=== PATIENT | male | born 1950 | race Caucasian/White ===

== ENCOUNTER → 2016-09-08 | Outpatient (CLI) | payer BC ==
--- NOTE | 2016-09-08 08:00 | US ---
EXAMINATION TYPE: US abdomen complete DATE OF EXAM: 09/08/2016 COMPARISON: NONE CLINICAL HISTORY: R74.8 Elevated Liver Enzymes. EXAM MEASUREMENTS: Liver Length: 15.4 cm Gallbladder Wall: 0.3 cm CBD: 0.4 cm Spleen: 13.1 cm Right Kidney: 12.2 x 4.7 x 5.1 cm Left Kidney: 12.1 x 5.9 x 5.8 cm Pancreas: not visualized due to midline bowel gas and body habitus Liver: difficult to penetrate, echogenic as compared to kidney Gallbladder: No stones seen Evidence for sonographic Womack's sign: No CBD: wnl Spleen: wnl Right Kidney: No hydronephrosis or masses seen Left Kidney: cyst laterally measures 2.1 x 2.2 x 2.6 cm Upper IVC: wnl Abd Aorta: upper portion not seen due to midline bowel gas and body habitus The pancreas is obscured. The liver is normal in size but echogenic and likely fatty infiltrated. The gallbladder is normal without evidence of cholelithiasis. The gallbladder wall measures 3 mm. The distal common hepatic duct measures 4 mm. The right kidney is normal. There is a simple appearing cyst arising from the lower pole of the left kidney. Visualized portions of aorta and IVC are normal. IMPRESSION: 1. PROBABLE FATTY INFILTRATION OF THE LIVER. 2. SIMPLE APPEARING LEFT RENAL CYST.
== END | disposition home or self-care (01) ==
LOC: RADUSWWP 06:47
PROVIDERS: ATTEND Family Medicine
DX: N28.1 Cyst of kidney, acquired (principal)
CPT/HCPCS: 76700

== ENCOUNTER → 2017-03-18 | Outpatient (CLI) | payer BC ==
--- NOTE | 2017-03-18 11:29 | CT ---
EXAMINATION TYPE: CT abdomen pelvis wo con DATE OF EXAM: 03/18/2017 HISTORY: Abd mass per order, mid abd tenderness per patient. CT DLP: 660.3 mGycm. Automated Exposure Control for Dose Reduction was Utilized. TECHNIQUE: CT scan of the abdomen and pelvis is performed without oral or IV contrast. COMPARISON: Complete abdominal ultrasound September 08, 2016 FINDINGS: Within the limitations of a non-contrast study, the following observations are made. LUNG BASES: Mild cardiomegaly is present. LIVER/GB: Visualized liver is heterogeneously hypodense consistent with fatty infiltration or underly ing hepatocellular disease. Recanalized umbilical vein is noted anteriorly. Slight lobulation is pres ent. PANCREAS: No significant abnormality is seen. SPLEEN: Spleen remains mildly enlarged at 13.1 cm long axis axial image 24. This correlates with prio r ultrasound. ADRENALS: No significant abnormality is seen. KIDNEYS: There is simple appearing 2.1 cm cyst posteriorly lower pole level left kidney axial image 4 2. Finding correlates with prior ultrasound. BOWEL: There is moderate size hiatal hernia containing small mesenteric vessels. A few scattered colo rosalba diverticula are present. There is no convincing evidence for acute diverticulitis. No suspicious small or large bowel dilatation. Normal-appearing appendix seen from cecum in the right lower quadran t. GENITAL ORGANS: No gross abnormality seen. LYMPH NODES: No greater than 1cm abdominal or pelvic lymph nodes are appreciated. OSSEOUS STRUCTURES: There is moderate multilevel spurring in the thoracolumbar spine. There is modera te to severe disc space narrowing and spurring L5-S1 level with prominent posterior spur and facet ar thropathy at this level. There is additional facet arthropathy with posterior disc herniation L4-L5 l evel. Moderate spurring and disc space narrowing bilateral hip joints is present. OTHER: Few scattered pelvic phleboliths are present. There is mild to moderate calcified plaque in th e distal abdominal aorta extending to iliac branch vessels with slight ectasia noted. There is small umbilical hernia containing fat and recanalized umbilical vein. IMPRESSION: 1. Persistent abnormal appearance of liver could reflect diffuse fatty infiltration but underlying he patocellular disease needs to BE considered or excluded as there is recanalized umbilical vein and mi ld splenomegaly noted. No ascites is seen or noted currently. 2. Moderate size umbilical hernia containing small abdominal mesenteric vessels and mesenteric fat. 3. No additional worrisome mass or adenopathy identified. Results communicated to ordering physician office via telephone at time of dictation.
== END | disposition home or self-care (01) ==
LOC: RADCTMAIN 10:45
PROVIDERS: ATTEND Nurse Practitioner Adult Health
DX: K42.9 Umbilical hernia without obstruction or gangrene (principal); R16.1 Splenomegaly, not elsewhere classified; R19.00 Intra-abdominal and pelvic swelling, mass and lump, unspecified site
CPT/HCPCS: 74176

== ENCOUNTER → 2018-01-02 | Outpatient (CLI) | payer BC ==
[2018-01-02 11:45] LABS: Basophils % (A) 2 %; Eosinophils # (A) 0.1 k/uL (0-0.7); Eosinophils % (A) 3 %; HCT 38.4 % (39.0-53.0); HGB 12.7 gm/dL (13.0-17.5); Lymphocytes # (A) 0.8 k/uL (1.0-4.8); Lymphocytes % (A) 31 %; MCH 32.2 pg (25.0-35.0); MCHC 33.1 g/dL (31.0-37.0); MCV 97.2 fL (80.0-100.0); Mean Platelet Volume 7.5; Monocytes # (A) 0.2 k/uL (0-1.0); Monocytes % (A) 8 %; Neutrophils # (A) 1.5 k/uL (1.3-7.7); Neutrophils % (A) 55 %; Platelet Count 130 k/uL (150-450); RBC 3.95 m/uL (4.30-5.90); RDW 14.1 % (11.5-15.5); WBC 2.7 k/uL (3.8-10.6)
[2018-01-02 12:19] LABS: Appearance,Urine Clear (Clear); Bilirubin,Urine Negative (Negative); Blood,Urine Negative (Negative); Color,Urine Yellow; Glucose,Urine (UA) Negative (Negative); Ketones,Urine Negative (Negative); Leukocyte Esterase,Urine Negative (Negative); Nitrite,Urine Negative (Negative); PH, Urine 6.5 (5.0-8.0); Protein,Urine Negative (Negative); Specific Gravity,Urine 1.017 (1.001-1.035)
[2018-01-02 14:40] LABS: Erythrocyte Sedimentation Rate 11 mm/hr (0-15)
[2018-01-02 17:12] LABS: Vitamin D 25 Hydroxy 37.3 ng/mL (30.0-100.0)
[2018-01-02 18:46] LABS: ALT 28 U/L (10-49); AST 45 U/L (14-35); Alkaline Phosphatase 69 U/L (41-126); C Reactive Protein <0.4 mg/dL (0.0-0.8); Carbon Dioxide 31.7 mmol/L (21.6-31.8); Chloride 109 mmol/L (96-109); Cholesterol 182 mg/dL (0-200); GGT 165 U/L (0-73); Globulin 2.1 g/dL (2.1-3.7); Glucose 102 mg/dL (70-110); Hepatitis A Antibody IgM Non-Reactive (Non-Reactive); Hepatitis B Core IgM Non-Reactive (Non-Reactive); Magnesium 1.7 mg/dL (1.5-2.4); Phosphorus 3.8 mg/dL (2.4-5.1); Sodium 146 mmol/L (135-145); Total Bilirubin 0.8 mg/dL (0.3-1.2); Total Protein 6.5 g/dL (6.2-8.2); Triglycerides <50.0 mg/dL (0.0-149.0); VLDL Calculation 9.98 mg/dL (5.00-40.00)
[2018-01-02 19:56] LABS: Hemoglobin A1C 5.6 % (4.0-6.0)
[2018-01-04 13:54] LABS: Creatine Kinase 164 U/L (35-257); Uric Acid 5.3 mg/dL (3.7-8.7)
== END | disposition home or self-care (01) ==
LOC: LABWHC1 10:56
PROVIDERS: ATTEND Internal Medicine
DX: E11.9 Type 2 diabetes mellitus without complications (principal); N40.0 Benign prostatic hyperplasia without lower urinary tract symptoms; E78.5 Hyperlipidemia, unspecified; D64.9 Anemia, unspecified; E55.9 Vitamin D deficiency, unspecified; F10.10 Alcohol abuse, uncomplicated
CPT/HCPCS: 36415; 80053; 80061; 80074; 81003; 82043; 82140; 82306; 82550; 82570; 82977; 83036; 83735; 84100; 84153; 84439; 84443; 84550; 85025; 85652; 86140

== ENCOUNTER 2018-01-05 17:35 | Emergency (ER) | payer BC, MEDICARE ==
[2018-01-05 17:59] VITALS: BP 143/76; PULSE 61; RESP 22; TEMP 98.6
--- NOTE | 2018-01-05 19:36 | XR ---
EXAMINATION: XR chest 2V DATE AND TIME: 01/05/2018 6:28 PM CLINICAL INDICATION: Pain after injury TECHNIQUE: PA and lateral COMPARISON: None. FINDINGS: The lungs are clear. The pleural spaces are negative. The cardiac silhouette is not enlarged. The remainder of the mediastinal silhouette is unremarkable. The skeletal structures and soft tissues are negative for acute findings. IMPRESSION: NO ACUTE PROCESS.
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
[2018-01-05] MEDS ORDERED: ACET/COD 300 MG/30 MG STARTER PACK 6 TAB BTL PO STA (19:52)
== END 2018-01-05 20:04 | disposition home or self-care (01) ==
LOC: EC 17:35
DX: S22.32XA Fracture of one rib, left side, initial encounter for closed fracture (principal); E11.9 Type 2 diabetes mellitus without complications; K21.9 Gastro-esophageal reflux disease without esophagitis; I10 Essential (primary) hypertension; F41.9 Anxiety disorder, unspecified; Z87.891 Personal history of nicotine dependence; Z79.82 Long term (current) use of aspirin; Z79.84 Long term (current) use of oral hypoglycemic drugs; Z79.899 Other long term (current) drug therapy; V19.9XXA Pedal cyclist (driver) (passenger) injured in unspecified traffic accident, initial encounter; Y93.55 Activity, bike riding
CPT/HCPCS: 71046; 99284

== ENCOUNTER → 2018-01-28 | Outpatient (CLI) | payer BC ==
[2018-01-29 04:16] LABS: T4, Free (Free Thyroxine) 1.2 ng/dL (0.80-1.80)
== END | disposition home or self-care (01) ==
LOC: LABMAIN 18:24
PROVIDERS: ATTEND Ophthalmology
DX: H05.20 Unspecified exophthalmos (principal)
CPT/HCPCS: 36415; 83519; 84439; 84443

== ENCOUNTER 2018-03-02 09:53 | Day surgery (SDC) | payer BC, MEDICARE ==
[~2018-03-02 09:53] MED LIST: LACTATED RINGERS 1,000 ML IV SCH; LIDOCAINE 1% 20 ML VIAL (10MG/ML) FOR IV START INTRADERMA PRN
[2018-03-02 10:31] LABS: Glucose,Whole Blood 91 mg/dL (75-99)
[2018-03-02 10:36] VITALS: RESP 16; TEMP 98.5
[2018-03-02] MEDS ORDERED: PROPOFOL 10 MG/ML 20 ML VIAL IV ONE (11:02)
[2018-03-02] MEDS ORDERED: LIDOCAINE 1% INJ 10MG/ML (20 ML MDV) ONE (11:02)
--- NOTE | 2018-03-02 11:26 | P.PCN ---
Date of Procedure: 03/02/18 Procedure(s) Performed: Procedure: Esophagogastroduodenoscopy and biopsy. Preoperative diagnosis: Blood in stools. Postoperative diagnosis: 1. Small sliding hiatal hernia with no obvious esophagitis or conjugated reflux disease. 2. Mild gastritis and moderate duodenitis but no ulcers or gastric outlet obstruction. 3. Biopsies obtained from the antrum and esophagus. Preparation sedation: Was provided by anesthesia. Brief clinical history: The patient is a 67-year-old male who is scheduled for this evaluation because of finding of occult blood in the stools. The patient had colonoscopy in December 2016. He has occasional difficulties with pills but no significant dysphagia. Has lost 30 pounds since he stopped drinking alcohol around 2 months ago. This evaluation is to assess for peptic ulcer disease, esophagitis or complicated reflux disease. Procedure: With the patient on his left lateral decubitus position and after informed consent and adequate sedation, I passed a Olympus-GIF 190 video upper endoscope through the cricopharyngeus down the esophagus. GE junction was around 40 cm from the incisors and there was a small sliding hiatal hernia but no obvious esophagitis or complicated reflux disease. The endoscope was then passed into the stomach which was insufflated with air and inspected in detail including the retroflex view in the cardia. There was some mottling and erythema in the antrum but no ulcers or erosions. Pyloric channel, duodenal bulb, post bulbar area and descending duodenum were the inspected. The bulb showed erythema and edema and scattered erosions but no ulcers or bleeding. Pyloric channel did not show any ulcers. I obtained biopsies from the antrum and esophagus then the endoscope was withdrawn. The patient tolerated the procedure well. Plan: The patient was reassured. Will await biopsy results. He is already on omeprazole which would be continued. Further plans based on his course and biopsy results.
[2018-03-02 11:38] VITALS: BP 154/83; PULSE 50
== END 2018-03-02 12:09 | disposition home or self-care (01) ==
LOC: ORWHC2ENDO 09:53
DX: K29.50 Unspecified chronic gastritis without bleeding (principal); K44.9 Diaphragmatic hernia without obstruction or gangrene; K29.80 Duodenitis without bleeding; R19.5 Other fecal abnormalities; K21.9 Gastro-esophageal reflux disease without esophagitis; I10 Essential (primary) hypertension; E11.9 Type 2 diabetes mellitus without complications; Z79.84 Long term (current) use of oral hypoglycemic drugs; Z79.82 Long term (current) use of aspirin; Z79.899 Other long term (current) drug therapy; Z87.891 Personal history of nicotine dependence
CPT/HCPCS: 88305; 43239; J2001; J2704

== ENCOUNTER → 2018-06-01 | Outpatient (CLI) | payer BC ==
[2018-06-01 23:45] LABS: C-Peptide 1.02 ng/mL (0.81-3.85)
[2018-06-02 01:04] LABS: Insulin Level 3.6 mIU/mL (3.0-25.0)
[2018-06-02 01:08] LABS: T4, Free (Free Thyroxine) 1.1 ng/dL (0.80-1.80)
[2018-06-02 02:33] LABS: Hemoglobin A1C 5.7 % (4.0-6.0)
[2018-06-02 15:02] LABS: Thyroid Peroxidase Antibodies <28.0 U/mL (0.0-60.0)
== END ==
LOC: LABWHC1 15:30
PROVIDERS: ATTEND Internal Medicine
DX: E11.9 Type 2 diabetes mellitus without complications (principal); E87.0 Hyperosmolality and hypernatremia; E05.90 Thyrotoxicosis, unspecified without thyrotoxic crisis or storm; E29.1 Testicular hypofunction
CPT/HCPCS: 36415; 82947; 83036; 83525; 84402; 84403; 84439; 84443; 84681; 86376; 86800

== ENCOUNTER → 2018-06-08 | Outpatient (CLI) | payer BC ==
--- NOTE | 2018-06-09 09:39 | XR ---
EXAMINATION TYPE: XR Hip RT and AP Pelvis DATE OF EXAM: 06/08/2018 COMPARISON: CT abdomen pelvis 03/18/2017 HISTORY: Pain TECHNIQUE: A single AP view of the pelvis is obtained. Two views of the right hip are obtained. FINDINGS: There is no acute fracture/dislocation evident in the pelvis. The hip and sacroiliac join ts appear symmetric and unremarkable. The overlying soft tissue appears unremarkable. Two views of right hip show no acute fracture or dislocation. No focal lytic or sclerotic lesion see n in the proximal right femur. The overlying soft tissue is unremarkable. Marginal spurring is pres ent with some joint space loss. Similar changes in the left hip. Calcification at the origin of the h amstring conjoined tendon origin may be due to chronic tear. Degenerative disc changes are present in the visualized spine. Suspect vascular calcifications are present in the pelvis. IMPRESSION: There is no acute fracture or dislocation in the pelvis or right hip. Osteoarthritis.
== END | disposition home or self-care (01) ==
LOC: RADXRMAIN 17:21
PROVIDERS: ATTEND Internal Medicine
DX: M16.11 Unilateral primary osteoarthritis, right hip (principal)
CPT/HCPCS: 73502

== ENCOUNTER → 2018-08-02 | Outpatient (CLI) | payer BC | END | disposition home or self-care (01) | LOC: RADMRIMAIN 16:08 | PROVIDERS: ATTEND Internal Medicine | DX: Z53.9 Procedure and treatment not carried out, unspecified reason (principal) ==

== ENCOUNTER 2019-01-10 08:49 | Emergency (ER) | payer BC, MEDICARE ==
[2019-01-10 08:56] VITALS: BP 156/78; PULSE 83; RESP 18; TEMP 98.9
[2019-01-10] MEDS ORDERED: HYDROcodone/APAP 5-325MG 1 EACH TAB PO STA (09:04)
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
--- NOTE | 2019-01-10 09:29 | XR ---
EXAMINATION TYPE: XR ankle complete LT, XR foot complete LT DATE OF EXAM: 01/10/2019 COMPARISON: NONE HISTORY: Pain TECHNIQUE: 3 views of the left foot and ankle are submitted for evaluation. FINDINGS: There is nondisplaced lateral malleolar fracture noted. There fractures noted at the bases of the second third and fourth metatarsals. Displacement estimated at 1 mm at each site. Small chip f ractures of felt to arise from the first cuneiform. No additional fractures noted. Soft tissue swelli ng noted about the lateral malleolus and midfoot. The ankle mortise is intact. IMPRESSION: 1. Fractures as discussed above.
[2019-01-10] MEDS ORDERED: ACET/COD 300 MG/30 MG STARTER PACK 6 TAB BTL PO STA (09:45)
== END 2019-01-10 10:16 | disposition home or self-care (01) ==
LOC: EC 08:49
DX: S82.65XA Nondisplaced fracture of lateral malleolus of left fibula, initial encounter for closed fracture (principal); S92.322A Displaced fracture of second metatarsal bone, left foot, initial encounter for closed fracture; S92.332A Displaced fracture of third metatarsal bone, left foot, initial encounter for closed fracture; S92.342A Displaced fracture of fourth metatarsal bone, left foot, initial encounter for closed fracture; E11.9 Type 2 diabetes mellitus without complications; K21.9 Gastro-esophageal reflux disease without esophagitis; I10 Essential (primary) hypertension; Z79.82 Long term (current) use of aspirin; Z79.84 Long term (current) use of oral hypoglycemic drugs; Z87.891 Personal history of nicotine dependence; Z79.899 Other long term (current) drug therapy; X50.1XXA Overexertion from prolonged static or awkward postures, initial encounter; Y93.01 Activity, walking, marching and hiking
CPT/HCPCS: 29515; 99283

== ENCOUNTER → 2019-01-12 | Outpatient (CLI) | payer BC, MEDICARE ==
--- NOTE | 2019-01-12 15:03 | CT ---
EXAMINATION TYPE: CT foot LT wo con DATE OF EXAM: 01/12/2019 COMPARISON: 01/10/2019 foot and ankle HISTORY: Left foot pain. CT DLP: 238.8 mGycm Automated exposure control for dose reduction was used. Technique: Axial images 2 mm thick sections. Reconstructed images in the coronal and sagittal plane. Three-D reconstructed images performed separa tely on the computer by the technologist are presented. FINDINGS: There is diffuse soft tissue swelling present. This includes the dorsum of the foot and mildly at the ankle. Ankle: There is a nondisplaced fracture of the distal fibula. This is comminuted. Also evident is a p osterior tibial fracture which is nondisplaced. No medial malleolar fracture is evident. Foot: Degenerative changes are at first metatarsal-phalangeal joint space. There is a fracture at the metaphysis of the second metatarsal. This has intra-articular extension. F ourth metatarsal nondisplaced fractures at the metaphysis. Third metatarsal fractures evident posteri patricia on the axial images. These suspected cuneiform chip fracture may be at the cuneiform metatarsal junction superiorly. No displacement of the metatarsals from the cuneiforms is identified. However, Lisfranc fracture shou ld be considered. IMPRESSION: 1. LISFRANC FRACTURE WITH FRACTURES OF THE PROXIMAL METAPHYSES OF THE SECOND THIRD AND FOURTH METATAR SALS. 2. COMMINUTED NONDISPLACED FRACTURE DISTAL FIBULA WITH A TINY POSTERIOR TIBIAL FRACTURE. 3. OVERLYING SOFT TISSUE SWELLING AT THE ANKLE AND FOOT
== END | disposition home or self-care (01) ==
LOC: RADCTMAIN 11:36
PROVIDERS: ATTEND Orthopaedic Surgery
DX: S92.322A Displaced fracture of second metatarsal bone, left foot, initial encounter for closed fracture (principal); S92.332A Displaced fracture of third metatarsal bone, left foot, initial encounter for closed fracture; S92.342A Displaced fracture of fourth metatarsal bone, left foot, initial encounter for closed fracture; S82.255A Nondisplaced comminuted fracture of shaft of left tibia, initial encounter for closed fracture; S82.832A Other fracture of upper and lower end of left fibula, initial encounter for closed fracture

== ENCOUNTER → 2019-02-24 | Outpatient (CLI) | payer BC ==
[2019-02-24 08:14] LABS: Basophils # (A) 0.1 k/uL (0-0.2); Basophils % (A) 1 %; Eosinophils # (A) 0.7 k/uL (0-0.7); Eosinophils % (A) 15 %; HGB 14.9 gm/dL (13.0-17.5); Lymphocytes # (A) 1.1 k/uL (1.0-4.8); Lymphocytes % (A) 22 %; MCH 30.9 pg (25.0-35.0); MCHC 33.1 g/dL (31.0-37.0); MCV 93.5 fL (80.0-100.0); Mean Platelet Volume 8.5; Monocytes # (A) 0.4 k/uL (0-1.0); Monocytes % (A) 9 %; Neutrophils # (A) 2.4 k/uL (1.3-7.7); Neutrophils % (A) 51 %; Platelet Count 137 k/uL (150-450); RBC 4.81 m/uL (4.30-5.90); RDW 14.2 % (11.5-15.5); WBC 4.8 k/uL (3.8-10.6)
[2019-02-24 11:32] LABS: Erythrocyte Sedimentation Rate 6 mm/hr (0-15)
[2019-02-24 13:12] LABS: ALT 26 U/L (10-49); AST 28 U/L (14-35); African American GFR (CKD) 102.1 (60.0-200.0); Alkaline Phosphatase 75 U/L (41-126); BUN/Creat Ratio 18.89 Ratio (12.00-20.00); C Reactive Protein <0.4 mg/dL (0.0-0.8); Calcium 9.1 mg/dL (8.7-10.3); Carbon Dioxide 30.2 mmol/L (21.6-31.8); Chloride 106 mmol/L (96-109); Chol/HDL Ratio 2.85; Cholesterol 185 mg/dL (0-200); Creatine Kinase 98 U/L (35-257); Glucose 131 mg/dL (70-110); LDL Cholesterol,Calculated 109.6 mg/dL (0.0-131.0); Non-African American GFR(CKD) 88.1 (60.0-200.0); Potassium 4.2 mmol/L (3.5-5.5); Sodium 142 mmol/L (135-145); Total Bilirubin 0.5 mg/dL (0.3-1.2); Total Protein 6.6 g/dL (6.2-8.2)
== END | disposition home or self-care (01) ==
LOC: LABWHC1 06:44
PROVIDERS: ATTEND Internal Medicine
DX: E78.5 Hyperlipidemia, unspecified (principal); N52.9 Male erectile dysfunction, unspecified; E55.9 Vitamin D deficiency, unspecified; R05 Cough
CPT/HCPCS: 36415; 80053; 80061; 82550; 84153; 84439; 84443; 85025; 85652; 86140

== ENCOUNTER → 2021-01-28 | Outpatient (CLI) | payer BC ==
--- NOTE | 2021-01-28 08:00 | US ---
EXAMINATION TYPE: US liver DATE OF EXAM: 01/28/2021 COMPARISON: NONE CLINICAL HISTORY: K70.30 Alcoholic cirrhosis of liver w/out ascites. No new history EXAM MEASUREMENTS: Liver Length: 15.0 cm Gallbladder Wall: 0.2 cm CBD: 0.3 cm Right Kidney: 10.1 x 6.2 x 5.4 cm Pancreas: Tail obscured by overlying bowel gas Liver: Increased attenuation, Coarse liver echotexture Gallbladder: wnl Evidence for sonographic Womack's sign: No CBD: wnl Right Kidney: No hydronephrosis or masses seen IMPRESSION: 1. Fatty infiltration liver.
[2021-01-28 08:45] LABS: Basophils # (A) 0.1 k/uL (0-0.2); Basophils % (A) 1 %; Eosinophils # (A) 0.1 k/uL (0-0.7); Eosinophils % (A) 1 %; HCT 45.4 % (39.0-53.0); HGB 14.9 gm/dL (13.0-17.5); Lymphocytes # (A) 1.2 k/uL (1.0-4.8); Lymphocytes % (A) 17 %; MCH 30.3 pg (25.0-35.0); MCHC 32.9 g/dL (31.0-37.0); MCV 91.9 fL (80.0-100.0); Mean Platelet Volume 7.6; Monocytes # (A) 0.4 k/uL (0-1.0); Monocytes % (A) 5 %; Neutrophils # (A) 5.3 k/uL (1.3-7.7); Neutrophils % (A) 75 %; Platelet Count 169 k/uL (150-450); RBC 4.93 m/uL (4.30-5.90); RDW 13.8 % (11.5-15.5); WBC 7.1 k/uL (3.8-10.6)
[2021-01-28 08:49] LABS: INR 1.1 (<1.2); Prothrombin Time 11.9 sec (9.0-12.0)
[2021-01-28 08:55] LABS: ALT 28 U/L (4-49); AST 31 U/L (17-59); African American GFR (CKD) >90 (>60 ml/min/1.73 sqM); Albumin 4.2 g/dL (3.5-5.0); Alkaline Phosphatase 57 U/L (38-126); Anion Gap 6 mmol/L; Bilirubin, Delta 0.2 mg/dL (0.0-0.2); Bilirubin,Unconjugated 0.4 mg/dL (0.0-1.1); Blood Urea Nitrogen 15 mg/dL (9-20); Calcium 9.2 mg/dL (8.4-10.2); Carbon Dioxide 30 mmol/L (22-30); Chloride 104 mmol/L (98-107); Glucose 108 mg/dL (74-99); Non-African American GFR(CKD) 88 (>60 ml/min/1.73 sqM); Potassium 4.2 mmol/L (3.5-5.1); Sodium 140 mmol/L (137-145); Total Bilirubin 0.6 mg/dL (0.2-1.3)
[2021-01-29 06:05] LABS: Chol/HDL Ratio 2.78 Ratio; LDL Cholesterol,Calculated 92.8 mg/dL (0.0-131.0); VLDL Calculation 10.32 mg/dL (5.00-40.00)
== END | disposition home or self-care (01) ==
LOC: RADUSWWP 07:15
PROVIDERS: ATTEND Internal Medicine Gastroenterology
DX: S62.509A Fracture of unspecified phalanx of unspecified thumb, initial encounter for closed fracture (principal); K76.0 Fatty (change of) liver, not elsewhere classified; K76.89 Other specified diseases of liver; E11.65 Type 2 diabetes mellitus with hyperglycemia; E78.5 Hyperlipidemia, unspecified; X58.XXXA Exposure to other specified factors, initial encounter
CPT/HCPCS: 76705; 80053; 80061; 82105; 82248; 83036; 85025; 85610

== ENCOUNTER → 2021-05-14 | Outpatient (CLI) | payer BC ==
--- NOTE | 2021-05-14 17:13 | P.SLEEP ---
History of Present Illness H&P Date: 05/14/21 70-year-old male patient, referred to me for sleep apnea evaluation. The patient is having sleep fragmentation when he is waking up several times in the middle of the night. He is not sure as far as the exact causes for his nighttime arousals. The patient is currently living alone and he does not have a bed partner. Is . He is a recovering alcoholic. His sleep was very much concerned when he was drinking alcohol excessively and has been alcohol free for the past 1-1/2 years. As the patient is currently free of alcohol, sleep quality has improved and he continued to have some occasional nocturnal arousals. He has history of snoring. He has history of banding of the teeth. He wakes up with a dry mouth. He continues to have some nocturia although less compared to the times when he used to drink alcohol. He goes to bed around 11 PM, wakes up 7 AM in the morning and is still working at a as an electrical manufacturing technician. No recent weight gain or weight loss. No sleepwalking or sleep talking. No sleep paralysis. No parasomnias. Current Prairie score is at 6. No obesity. No recent weight gain or weight loss. No history of any motor vehicle accident because of excessive drowsiness or sleepiness. No history of restlessness and lower extremities. He prefers to sleep on his side. He is a note that a mouth breather. He is an ex-smoker. No recent substance abuse. Review of Systems 12 point review of system was done and the positive findings are almost above history of present illness. The patient reports that he still functional. The has no issues waking up and he does not follow surgery day-to-day activities. No issues with memory or concentration. No history of any depression or anxiety. No claustrophobia. No palpitation or heartburn. No sleepwalking. No sleep talking. Denies choking or gasping for air in the middle of the night. No sweating. He used to have issues with insomnia when he was taken out but excessively and currently is free of any alcohol and the patient is able to generate sleep without any major difficulties. Past Medical History Past Medical History: Diabetes Mellitus, GERD/Reflux, Hypertension Additional Past Medical History / Comment(s): .alcoholism and the patient has not drank for the past one half years, still going to AA meetings History of Any Multi-Drug Resistant Organisms: None Reported Past Surgical History: Hernia Repair, Orthopedic Surgery, Tonsillectomy Additional Past Surgical History / Comment(s): HIATAL HERNIA (), TONSILLS AND R LEG FX REPAIR DONE WHEN HE WAS A CHILD. Past Anesthesia/Blood Transfusion Reactions: No Reported Reaction Past Psychological History: Anxiety Past Alcohol Use History: Occasional Past Drug Use History: None Reported - Past Family History Mother Family Medical History: Cancer Medications and Allergies Home Medications Medication Instructions Recorded Confirmed Type Aspirin [Adult Low Dose Aspirin EC] 162 mg PO DAILY 12/22/16 01/10/19 History Ascorbic Acid [Vitamin C] 500 mg PO DAILY 02/25/18 01/10/19 History Cholecalciferol [Vitamin D3] 1,000 units PO DAILY 02/25/18 01/10/19 History Cyanocobalamin (Vitamin B-12) 1,000 mcg PO DAILY 02/25/18 01/10/19 History [Vitamin B-12] [place]-3 Fatty Acids/Fish Oil [Fish 1 tab PO DAILY 02/25/18 01/10/19 History Oil 1,000 mg Softgel] Vitamin E (Dl,Tocopheryl Acet) 200 units PO DAILY 02/25/18 01/10/19 History [Vitamin E] Allergies Allergy/AdvReac Type Severity Reaction Status Date / Time No Known Allergies Allergy Verified 01/10/19 09:54 Physical Exam BP is 127/71 with a pulse of 67 and the respiration of 16 and a temperature 97.5 the patient's oxygen saturations around 95%. BMI 29.1. Weight is 186. Prairie score is at 6.the neck size is at 16 and3/4 of an inch. The patient appeared well nourished and normally developed. Vital signs as d ocumented. Head exam is unremarkable. No scleral icterus or corneal arcus noted. Neck is without jugular venous distension, thyromegaly, or carotid bruits. the patient has an overbite. The patient also has evidence of grinding of the teeth. He has Mallampati class IV.Carotid upstrokes are brisk bilaterally. Lungs are clear to auscultation and percussion. Cardiac exam reveals the PMI to be normally sized and situated. Rhythm is regular. First and second heart sounds normal. No murmurs, rubs or gallops. Abdominal exam reveals normal bowel sounds, no masses, no organomegaly and no aortic enlargement. Extremities are nonedematous and both femoral and pedal pulses are normal.Examination of the skin revealed no evidence of significant rashes, suspicious appearing nevi or other concerning lesions.Neurologically, the patient is awake and alert and the patient does not have any focal neurological deficit. Cranial nerves are essentially intact. Assessment and Plan Plan: 1 loud snoring along with sleep fragmentation, possible obstructive sleep apnea although other comorbid conditions such as history of alcoholism could do the same. The patient is a recovering alcoholic and he has been coughing for the past one and half years. He is coming in for a sleep apnea evaluation to further investigate the causes of his sleep fragmentation. His current Prairie scores at 6 2 overbite 3 grinding of the teeth 4 history of alcoholism 5 hypertension 6 acid reflux Plan The patient will undergo a screening polysomnogram looking for any significant sleep breathing disorder and will proceed with treatment accordingly. Obviously history of alcohol was includes cause sleep fragmentation and cause frequent nocturnal arousals. By performing a polysomnogram, or should be able to rule out possibility of other conditions such as sleep breathing disorder contributing to sleep fragmentation. We'll decide if treatment is needed accordingly. Maintaining good sleep hygiene measures. Alcohol abstinence. Maintain a regular sleep schedule. We'll continue to follow. Sleep Note - Sleep Note Sleep Note: Temperature: Pulse Rate: Respiratory Rate: Blood Pressure: SpO2: Height: Weight: BMI: Neck Circumference:
== END ==
LOC: SLEEP 15:42
PROVIDERS: ATTEND Internal Medicine Critical Care Medicine
DX: G47.8 Other sleep disorders (principal); M26.29 Other anomalies of dental arch relationship; G47.63 Sleep related bruxism; F10.21 Alcohol dependence, in remission; I10 Essential (primary) hypertension; K21.9 Gastro-esophageal reflux disease without esophagitis; E11.9 Type 2 diabetes mellitus without complications; F41.9 Anxiety disorder, unspecified; Z87.891 Personal history of nicotine dependence
CPT/HCPCS: 99211

== ENCOUNTER → 2021-07-02 | Outpatient (CLI) | payer BC ==
--- NOTE | 2021-07-02 14:09 | P.PN ---
Subjective Progress Note Date: 07/02/21 On today's evaluation of 07/02/2021, I'm seeing the patient for a follow-up. The patient has no specific complaints. I discussed with him the results of the sleep study that was complicated 06/10/2021. In summary, the patient had no evidence of any sleep breathing disorder. The patient's apnea popping index was at 2.8. Nevertheless, the patient had poor sleep efficiency At 65% and the patient had excessive periodic limb movement activity and excessive sleep fragmentation and frequent arousals. Based on that, I ordered some blood work including a CBC and iron studies and all of them came back within normal limits. The patient's hemoglobin currently is at 14.1 and the patient has normal iron studies. His magnesium level is at 1.9. His potassium level was also within normal level at 3.7. No other significant electrode disturbances. Other the patient is an ex or recovering alcoholic and the patient is not drinking at this point in time. No recent weight gain. No other complaints otherwise for now. Objective - Exam BP is 117/73, pulse is 88, respirations 16, and thethe temperature is 97.8. Pulse ox 95% on room air oxygen. The patient appeared well nourished and normally developed. Vital signs as documented. Head exam is unremarkable. No scleral icterus or corneal arcus noted. Neck is without jugular venous distension, thyromegaly, or carotid bruits. the patient has an overbite. The patient also has evidence of grinding of the teeth. He has Mallampati class IV.Carotid upstrokes are brisk bilaterally. Lungs are clear to auscultation and percussion. Cardiac exam reveals the PMI to be normally sized and situated. Rhythm is regular. First and second heart sounds normal. No murmurs, rubs or gallops. Abdominal exam reveals normal bowel sounds, no masses, no organomegaly and no aortic enlargement. Extremities are nonedematous and both femoral and pedal pulses are normal.Examination of the skin revealed no evidence of significant rashes, suspicious appearing nevi or other concerning lesions.Neurologically, the pa kim is awake and alert and the patient does not have any focal neurological deficit. Cranial nerves are essentially intact. Assessment and Plan Plan: 1 loud primary snoring and there is no evidence of any sleep breathing disorder.history study was negative for obstructive sleep apnea. 2.Periodic limb movements, excessive, likely contributing to the patient's sleep fragmentation. No family history of restless leg syndrome. No extra disturbances contributing to this patient's excessive periodic, with activity. Nevertheless, the patient has sleep fragmentation the patient has a high arousal index along with a poor sleep efficiency which probably is contributing to daytime hypersomnia. 2 overbite 3 grinding of the teeth 4 history of alcoholism 5 hypertension 6 acid reflux Plan blood work essentially within normal limits here is no need for CPAP therapy Reassured in regards to sleep breathing disorder we'll give the patient a trial of Mirapex 0.5 mg regarding hisPeriodic limb movement activity and the patient will report to the back if he benefits from the treatment and we are looking to improve the patient's sleep efficiency and cut down and eliminate some of the nocturnal arousals that is in counseling. We'll continue to follow
== END ==
LOC: SLEEP 13:02
PROVIDERS: ATTEND Internal Medicine Critical Care Medicine
DX: G47.8 Other sleep disorders (principal); G47.61 Periodic limb movement disorder; M26.29 Other anomalies of dental arch relationship; G47.63 Sleep related bruxism; I10 Essential (primary) hypertension; K21.9 Gastro-esophageal reflux disease without esophagitis; F10.21 Alcohol dependence, in remission; Z87.891 Personal history of nicotine dependence

== ENCOUNTER → 2021-09-24 | Outpatient (CLI) | payer BC ==
--- NOTE | 2021-09-24 10:13 | US ---
EXAMINATION TYPE: US liver DATE OF EXAM: 09/24/2021 COMPARISON: NONE CLINICAL HISTORY: K70.30 Alcoholic cirrhosis of liver. TECHNIQUE: Multiple sonographic images of the right upper quadrant are obtained. FINDINGS: EXAM MEASUREMENTS: Liver Length: 14.4 cm Gallbladder Wall: 0.2 cm CBD: 0.5 cm Right Kidney: 9.8 x 4.6 x 5.5 cm PROGRESSIVE CARE NURSE NOTES: Pancreas: tail gassed out, visualized portions wnl Liver: coarse echotexture, somewhat nodular margins Gallbladder: wnl Evidence for sonographic Womack's sign: no CBD: wnl Right Kidney: wnl IMPRESSION: Hepatic steatosis.
== END | disposition home or self-care (01) ==
LOC: RADUSWWP 09:34
PROVIDERS: ATTEND Internal Medicine Gastroenterology
DX: K76.0 Fatty (change of) liver, not elsewhere classified (principal)
CPT/HCPCS: 76705